=== PATIENT | female | born 1955 | race American Indian/Alaskan Native ===

== ENCOUNTER 2016-06-03 09:13 | Outpatient (CLI) | payer BC ==
--- NOTE | 2016-06-03 16:02 | Mammography Report ---
BILATERAL DIGITAL SCREENING MAMMOGRAM with CAD: 06/03/16 09:13:00 CLINICAL: Routine screening. COMPARISON:02/17/15 FINDINGS: There are scattered areas of fibroglandular density. No mass, architectural distortion or suspicious calcifications. IMPRESSION: No mammographic evidence of malignancy. BI-RADS CATEGORY: 1 - - Negative RECOMMENDATION: Routine mammographic screening in one year. COMMENT: Patient follow-up letters are generated by our [email or web address] application.
== END 2016-06-03 09:14 | disposition home or self-care (01) ==
LOC: SPVWC 09:13
PROVIDERS: ATTEND Obstetrics & Gynecology Gynecology
DX: Z12.31 Encounter for screening mammogram for malignant neoplasm of breast (principal)
CPT/HCPCS: 77067; G0202

== ENCOUNTER 2016-07-12 13:15 | Outpatient (CLI) | payer BC ==
--- NOTE | 2016-07-12 13:55 | XRay Report ---
ROUTINE CHEST, TWO VIEWS: HISTORY: Cough. The trachea, heart, mediastinal contour, lung cordero and bony thorax are unremarkable. IMPRESSION: Unremarkable chest x-ray.
== END 2016-07-12 13:16 | disposition home or self-care (01) ==
LOC: XRAY 13:15
PROVIDERS: ATTEND Internal Medicine
DX: R05 Cough (principal)
CPT/HCPCS: 71020

== ENCOUNTER 2016-10-10 10:13 | Outpatient (CLI) | payer BC ==
[2016-10-10 10:34] LABS: Basophils % (Auto) 0.8 % (0.0-1.8); Eosinophils % (Auto) 4.7 % (0.0-4.3); Hematocrit 38.3 % (30.3-42.9); Hemoglobin 12.1 gm/dl (10.1-14.3); Mean Corpuscular HGB Conc 32 % (30-34); Mean Corpuscular Hemoglobin 30 pg (28-32); Mean Corpuscular Volume 93 fl (79-97); Platelet Count 223 K/mm3 (140-440); Red Cell Distribution Width 15.4 % (13.2-15.2); White Blood Count 4.4 K/mm3 (4.5-11.0)
[2016-10-10 11:01] LABS: Alanine Aminotransferase 14 units/L (7-56); Albumin 3.9 g/dL (3.9-5); Alkaline Phosphatase 83 units/L (35-129); Anion Gap 17 mmol/L; Blood Urea Nitrogen 16 mg/dL (7-17); Carbon Dioxide 26 mmol/L (22-30); Chloride 101.8 mmol/L (98-107); Glucose 91 mg/dL (65-100); Potassium 4.2 mmol/L (3.6-5.0); Sodium 141 mmol/L (137-145); Total Protein 7.7 g/dL (6.3-8.2); Uric Acid 5.7 mg/dL (3.5-7.6)
[2016-10-13 15:27] LABS: Vitamin D, 25-OH, Total 20 ng/mL (30-100)
== END 2016-10-10 10:14 | disposition home or self-care (01) ==
LOC: LAB 10:13
PROVIDERS: ATTEND Internal Medicine
DX: M05.79 Rheumatoid arthritis with rheumatoid factor of multiple sites without organ or systems involvement (principal); E55.9 Vitamin D deficiency, unspecified; E04.9 Nontoxic goiter, unspecified; M10.9 Gout, unspecified; I10 Essential (primary) hypertension; J45.909 Unspecified asthma, uncomplicated; F32.9 Major depressive disorder, single episode, unspecified; F41.9 Anxiety disorder, unspecified; Z87.891 Personal history of nicotine dependence
CPT/HCPCS: 36415; 80053; 82306; 84436; 84443; 84550; 85025

== ENCOUNTER 2016-10-25 07:32 | Outpatient (CLI) | payer BC ==
[2016-10-25] MEDS ORDERED: PROVENTIL IH ONE (07:51)
--- NOTE | 2016-10-26 23:28 | Pulmonary Function Test ---
REFERRING PHYSICIAN: Dr. Aldana. Spirometry revealed FVC, FEV1 and FEV1/FVC flow volume loop were normal, indicating normal spirometry. No change was noted after the bronchodilator. Pulmonary exercise testing was performed after the patient exercised for 8 minutes and it was done as per ATS guidelines. There was no evidence of bronchoconstriction on significant decrease in FEV1 were noted with exercise. IMPRESSION: Normal spirometry. No evidence of exercise-induced bronchoconstriction. JOB# [id number] VT/NTS
== END 2016-10-25 07:33 | disposition home or self-care (01) ==
LOC: PF 07:32
PROVIDERS: ATTEND Internal Medicine
DX: J45.21 Mild intermittent asthma with (acute) exacerbation (principal); I10 Essential (primary) hypertension; Z87.891 Personal history of nicotine dependence
CPT/HCPCS: 94060; 94640

== ENCOUNTER 2017-01-12 11:00 | Outpatient (CLI) | payer BC | END 2017-01-12 11:01 | disposition home or self-care (01) | LOC: SLR 11:00 | PROVIDERS: ATTEND Internal Medicine Critical Care Medicine | DX: G47.33 Obstructive sleep apnea (adult) (pediatric) (principal); E66.9 Obesity, unspecified; R40.0 Somnolence; I10 Essential (primary) hypertension | CPT/HCPCS: 95811 ==

== ENCOUNTER 2017-03-18 09:53 | Emergency (ER) | payer BC ==
[2017-03-18] MEDS ORDERED: DUONEB *Not for PRN Use IH ONE (10:54)
--- NOTE | 2017-03-18 11:37 | Emergency Department Report ---
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) - Related Data Home Medications Medication Instructions Recorded Confirmed Last Taken Allopurinol [Zyloprim] 300 mg PO BID 03/05/13 04/27/15 05/04/15 Citalopram Hydrobromide 40 mg PO DAILY 03/05/13 05/05/15 05/05/15 06:30 [Citalopram HBr] Cyanocobalamin/Folic Acid [Vitamin 1 tab PO DAILY 03/05/13 05/05/15 1 Week Ago M48-Pbumj Acid Tablet] ~04/28/15 Estradiol [Estradiol] 1 patch TRANSDERMA Q2W 03/05/13 04/27/15 05/04/15 Hydroxyzine HCl [Hydroxyzine HCl] 50 mg PO DAILY 03/05/13 04/27/15 05/04/15 Methotrexate Sodium [Methotrexate] 6 tab PO 1XW 03/05/13 05/05/15 05/03/15 traMADol [Ultram 50 MG tab] 50 mg PO PRN PRN 03/05/13 04/27/15 05/04/15 Albuterol Sulfate [Albuterol 0.63%] 0.63 mg IH PRN PRN 09/23/14 04/27/15 Bupropion HCl [buPROPion] 150 mg PO DAILY 04/27/15 04/27/15 05/04/15 Cholecalciferol Vit D3 [Vitamin D3] 1,000 mg PO DAILY 04/27/15 04/27/15 1 Week Ago ~04/28/15 Clotrimazole [Jock Itch] 1 applic VG PRN PRN 04/27/15 04/27/15 Unknown Esomeprazole Magnesium [NexIUM] 40 mg PO QDAY 04/27/15 04/27/15 05/04/15 Ranitidine HCl [Zantac 300 MG TAB] 300 mg PO DAILY 04/27/15 04/27/15 05/04/15 Vitamin B12 1,000 mg PO DAILY 04/27/15 04/27/15 1 Week Ago ~04/28/15 amLODIPine [Norvasc] 5 mg PO DAILY 04/27/15 05/05/15 05/05/15 06:30 Previous Rx's Medication Instructions Recorded Last Taken Type Cephalexin [Keflex] 500 mg PO Q12HR #20 cap 03/18/17 Unknown Rx Allergies Allergy/AdvReac Type Severity Reaction Status Date / Time ampicillin Allergy Itching Verified 04/27/15 15:55 chocolate flavor Allergy Shortness Verified 04/27/15 15:55 of Breath latex Allergy Rash Verified 09/23/14 16:11 peanut Allergy Shortness Verified 04/27/15 15:55 of Breath shellfish derived Allergy Shortness Verified 04/27/15 15:55 of Breath caramel Allergy Shortness Uncoded 04/27/15 15:59 of Breath ED Review of Systems ROS: Stated complaint: SORE THROAT/CHILLS Other details as noted in HPI Comment: All other systems reviewed and negative Constitutional: no symptoms reported Eyes: as per HPI ENT: throat pain Respiratory: cough Endocrine: no symptoms reported Genitourinary: as per HPI Musculoskeletal: as per HPI Skin: as per HPI Neurological: as per HPI Psychiatric: as per HPI Hematological/Lymphatic: as per HPI ED Past Medical Hx - Past Medical History Previous Medical History?: Yes Hx Hypertension: Yes Hx Congestive Heart Failure: No Hx Diabetes: No Hx GERD: Yes Hx Arthritis: Yes Hx Asthma: Yes Hx COPD: No Additional medical history: GOUT - Surgical History Past Surgical History?: Yes Additional Surgical History: HYSTERECTOMY, BUNION SURGERY,CARPAL TUNNEL - Social History Smoking Status: Never Smoker Substance Use Type: Alcohol, Prescribed - Medications Home Medications: Home Medications Medication Instructions Recorded Confirmed Last Taken Type Allopurinol [Zyloprim] 300 mg PO BID 03/05/13 04/27/15 05/04/15 History Citalopram Hydrobromide 40 mg PO DAILY 03/05/13 05/05/15 05/05/15 06:30 History [Citalopram HBr] Cyanocobalamin/Folic Acid [Vitamin 1 tab PO DAILY 03/05/13 05/05/15 1 Week Ago History C36-Gsbxi Acid Tablet] ~04/28/15 Estradiol [Estradiol] 1 patch TRANSDERMA Q2W 03/05/13 04/27/1516 History Hydroxyzine HCl [Hydroxyzine HCl] 50 mg PO DAILY 03/05/13 04/27/15 05/04/15 History Methotrexate Sodium [Methotrexate] 6 tab PO 1XW 03/05/13 05/05/15 05/03/15 History traMADol [Ultram 50 MG tab] 50 mg PO PRN PRN 03/05/13 04/27/15 05/04/15 History Albuterol Sulfate [Albuterol 0.63%] 0.63 mg IH PRN PRN 09/23/14 04/27/15 History Bupropion HCl [buPROPion] 150 mg PO DAILY 04/27/15 04/27/15 05/04/15 History Cholecalciferol Vit D3 [Vitamin D3] 1,000 mg PO DAILY 04/27/15 04/27/15 1 Week Ago History ~04/28/15 Clotrimazole [Jock Itch] 1 applic VG PRN PRN 04/27/15 04/27/15 Unknown History Esomeprazole Magnesium [NexIUM] 40 mg PO QDAY 04/27/15 04/27/15 05/04/15 History Ranitidine HCl [Zantac 300 MG TAB] 300 mg PO DAILY 04/27/15 04/27/15 05/04/15 History Vitamin B12 1,000 mg PO DAILY 04/27/15 04/27/15 1 Week Ago History ~04/28/15 amLODIPine [Norvasc] 5 mg PO DAILY 04/27/15 05/05/15 05/05/15 06:30 History Cephalexin [Keflex] 500 mg PO Q12HR #20 cap 03/18/17 Unknown Rx ED Physical Exam - General Limitations: No Limitations General appearance: alert - Head Head exam: Present: atraumatic - Eye Eye exam: Present: normal appearance, PERRL, EOMI - ENT ENT exam: Present: mucous membranes moist, TM's normal bilaterally, other (red wo exudate). Absent: normal orophraynx - Neck Neck exam: Present: normal inspection - Respiratory Respiratory exam: Present: normal lung sounds bilaterally, wheezes (mild b) - Cardiovascular Cardiovascular Exam: Present: regular rate - GI/Abdominal GI/Abdominal exam: Present: soft - Rectal Rectal exam: Present: deferred - Extremities Exam Extremities exam: Present: normal inspection, full ROM - Back Exam Back exam: Present: normal inspection, full ROM. Absent: tenderness, CVA tenderness (R) - Neurological Exam Neurological exam: Present: alert, oriented X3, CN II-XII intact - Psychiatric Psychiatric exam: Present: normal affect, normal mood - Skin Skin exam: Present: warm, dry, intact ED Course Vital Signs 03/18/17 03/18/17 03/18/17 09:58 11:44 13:06 Temperature 99.2 F 100.2 F H Pulse Rate 102 H 104 H Pulse Rate [ 84 Right Middle Lobe] Respiratory 18 20 Rate Respiratory 18 Rate [Right Middle Lobe] Blood Pressure 137/83 Blood Pressure 119/72 [Right] O2 Sat by Pulse 97 98 Oximetry - Reevaluation(s) Reevaluation #1: to er w s/s urti hosp employee medicated for fever which went down ptd- 100 oral on dc strep pos medicated for asthma ae w relief non toxic appearing no cp no sob dc home w dc poc 03/26/17 12:47 Reevaluation #2: 03/18/17 13:11 pt updated w results of labs medicated then will dc home w dc poc ED Medical Decision Making - Radiology Data Radiology results: report reviewed, image reviewed - Medical Decision Making see note strep pos - Differential Diagnosis asthma ae/ urti/ pharngitis Critical care attestation.: If time is entered above; I have spent that time in minutes in the direct care of this critically ill patient, excluding procedure time. ED Disposition Clinical Impression: Asthma, URTI (acute upper respiratory infection), Strep pharyngitis Disposition: DC- TO HOME OR SELFCARE Is pt being admited?: No Does the pt Need Aspirin: No Condition: Stable Instructions: Asthma (ED), Strep Throat (ED) Additional Instructions: rest fluids hydrate well follow up with pcp monday if not feeling better continue home meds good handwashing Prescriptions: Cephalexin [Keflex] 500 mg PO Q12HR #20 cap Referrals: PAUL RAMOS JR, MD [Primary Care Provider] - 3-5 Days Forms: Work/School Release Form(ED) Time of Disposition: 12:44
--- NOTE | 2017-03-18 11:54 | XRay Report ---
Chest 2 views: Compared to 07/12/16. History: Ccc Findings: Normal cardiomediastinal silhouette. Trachea is midline. No consolidation, pneumothorax or pleural effusion. Impression: No acute cardiopulmonary findings.
[2017-03-18] MEDS ORDERED: KEFLEX PO ONE (12:45)
[2017-03-18 13:08] VITALS: BP 119/72
[2017-03-18] MEDS ORDERED: MOTRIN PO ONE (13:12)
== END 2017-03-18 13:10 | disposition home or self-care (01) ==
LOC: ED 09:53
DX: J02.0 Streptococcal pharyngitis (principal); J45.909 Unspecified asthma, uncomplicated; J06.9 Acute upper respiratory infection, unspecified; I10 Essential (primary) hypertension; K21.9 Gastro-esophageal reflux disease without esophagitis; M19.90 Unspecified osteoarthritis, unspecified site; Z88.1 Allergy status to other antibiotic agents; Z91.040 Latex allergy status; Z91.010 Allergy to peanuts; Z91.013 Allergy to seafood; Z91.018 Allergy to other foods
CPT/HCPCS: 71020; 87400; 87430; 96372; 99283; J2930

== ENCOUNTER → 2017-06-13 | Outpatient (CLI) | payer BC | LOC: SLR 11:00 | PROVIDERS: ATTEND Internal Medicine Critical Care Medicine | DX: G47.30 Sleep apnea, unspecified (principal); I10 Essential (primary) hypertension; J45.909 Unspecified asthma, uncomplicated; Z79.899 Other long term (current) drug therapy | CPT/HCPCS: 95810 ==

== ENCOUNTER → 2017-08-09 | Outpatient (CLI) | payer BC | LOC: SLR 11:00 | PROVIDERS: ATTEND Internal Medicine Critical Care Medicine | DX: G47.33 Obstructive sleep apnea (adult) (pediatric) (principal); I10 Essential (primary) hypertension; J45.909 Unspecified asthma, uncomplicated; K21.9 Gastro-esophageal reflux disease without esophagitis; Z87.891 Personal history of nicotine dependence | CPT/HCPCS: 95811 ==

== ENCOUNTER 2018-09-20 15:22 | Outpatient (CLI) | payer BC ==
--- NOTE | 2018-09-20 16:09 | Mammography Report ---
BILATERAL DIGITAL SCREENING MAMMOGRAM with CAD: 09/20/18 15:22:00 CLINICAL: Routine screening. COMPARISON: 06/03/16 FINDINGS: There are bilateral scattered areas of fibroglandular density.No mass, architectural distortion or suspicious calcifications. IMPRESSION: No mammographic evidence of malignancy. BI-RADS CATEGORY: 1 -- Negative RECOMMENDATION: Routine mammographic screening in one year. COMMENT: Patient follow-up letters are generated by our [employer] application.
== END 2018-09-20 15:23 | disposition home or self-care (01) ==
LOC: SPVWC 15:22
PROVIDERS: ATTEND Obstetrics & Gynecology
DX: Z12.31 Encounter for screening mammogram for malignant neoplasm of breast (principal); I10 Essential (primary) hypertension; J45.909 Unspecified asthma, uncomplicated; K21.9 Gastro-esophageal reflux disease without esophagitis; Z90.710 Acquired absence of both cervix and uterus
CPT/HCPCS: 77067

== ENCOUNTER 2018-10-29 07:38 | Emergency (ER) | payer BC ==
[2018-10-29 07:48] VITALS: BP 172/89
[2018-10-29 08:10] LABS: Bilirubin,Urine NEG (Negative); Blood,Urine SM (Negative); Color,Urine Yellow (Yellow); Mucus,Urine FEW /HPF; Protein,Urine <15 mg/dL mg/dL (Negative); Urobilinogen,Urine < 2.0 mg/dL (<2.0)
[2018-10-29] MEDS ORDERED: ULTRAM PO ONE (08:28)
--- NOTE | 2018-10-29 08:28 | Emergency Department Report ---
HPI - General Chief Complaint: Abdominal Pain Time Seen by Provider: 10/29/18 07:53 - HPI HPI: Patient is a 63-year-old female who comes to the ER complaining of back pain that originates in her mid back radiating to her right side. This is associated with frequency through the night. She does also have increasing pain with movement. Patient denies any fall or injury. However, she does do a lot of lifting pushing and pulling with her job. She denies dysuria or fever. She denies abdominal pain. There is been no nausea vomiting or diarrhea. She had a normal BM yesterday. Patient is ambulatory on admission to the emergency room. PCP is Dr. Aldana. home rx: methatrexate allopurinol zantac vistaril estradial benazepril citalopram buproprion flonase clotrimez/betameth cream vit D Vit B fish oil ED Past Medical Hx - Past Medical History Previous Medical History?: Yes Hx Hypertension: Yes Hx Congestive Heart Failure: No Hx Diabetes: No Hx GERD: Yes Hx Arthritis: Yes Hx Asthma: Yes Hx COPD: No Additional medical history: GOUT. sleep apnea - Surgical History Past Surgical History?: Yes Additional Surgical History: HYSTERECTOMY, BUNION SURGERY,CARPAL TUNNEL, left knee replacement - Family History Family history: no significant - Social History Smoking Status: Never Smoker Substance Use Type: Alcohol - Medications Home Medications: Home Medications Medication Instructions Recorded Confirmed Last Taken Type Allopurinol [Zyloprim] 300 mg PO BID 03/05/13 04/27/15 05/04/15 History Citalopram Hydrobromide 40 mg PO DAILY 03/05/13 05/05/15 05/05/15 06:30 History [Citalopram HBr] Cyanocobalamin/Folic Acid [Vitamin 1 tab PO DAILY 03/05/13 05/05/15 1 Week Ago History C83-Qnlav Acid Tablet] ~04/28/15 Estradiol 1 patch TRANSDERMA Q2W 03/05/13 04/27/15 05/04/15 History Methotrexate Sodium [Methotrexate] 6 tab PO 1XW 03/05/13 05/05/15 05/03/15 History Cholecalciferol Vit D3 [Vitamin D3] 1,000 mg PO DAILY 04/27/15 04/27/15 1 Week Ago History ~04/28/15 Clotrimazole [Jock Itch] 1 applic VG PRN PRN 04/27/15 04/27/15 Unknown History Esomeprazole Magnesium [NexIUM] 40 mg PO QDAY 04/27/15 04/27/15 05/04/15 History Vitamin B12 1,000 mg PO DAILY 04/27/15 04/27/15 1 Week Ago History ~04/28/15 buPROPion HCl [buPROPion] 150 mg PO DAILY 04/27/15 04/27/15 05/04/15 History raNITIdine HCl [Zantac 300 MG TAB] 300 mg PO DAILY 04/27/15 04/27/15 05/04/15 History Sulfamethoxazole/Trimethoprim 1 each PO BID #6 tablet 10/29/18 Unknown Rx [Bactrim DS TAB] traMADol [Ultram] 50 mg PO Q6HR PRN #10 tablet 10/29/18 Unknown Rx ED Review of Systems ROS: Stated complaint: RT KNEE/RT SHOULDER PAIN Other details as noted in HPI Comment: All other systems reviewed and negative Physical Exam - Physical Exam Vital Signs: Vital Signs 10/29/18 07:41 Temperature 98.0 F Pulse Rate 73 Respiratory 18 Rate Blood Pressure 172/89 O2 Sat by Pulse 100 Oximetry Physical Exam: Alert and oriented 4. No focal deficit. Ambulatory. S1-S2. Lungs clear to auscultation. Abdomen soft and nontender. No midline spine tenderness. Tenderness to bilateral flanks but not consistent with CVA tenderness. Her pain seems to be with any sort of movement. She has no edema no JVD. No abrasions lacerations or other signs of injury. Vital signs are stable and she is afebrile on admission to the [facility]. ED Course Vital Signs 10/29/18 07:41 Temperature 98.0 F Pulse Rate 73 Respiratory 18 Rate Blood Pressure 172/89 O2 Sat by Pulse 100 Oximetry ED Medical Decision Making - Medical Decision Making Lab Results 10/29/18 Range/Units Unknown Urine Bilirubin Neg (Negative) Urine RBC (Auto) 3.0 (0.0-6.0) /HPF U Epithel Cells (Auto) 3.0 (0-13.0) /HPF Vital Signs 10/29/18 07:41 Temperature 98.0 F Pulse Rate 73 Respiratory 18 Rate Blood Pressure 172/89 O2 Sat by Pulse 100 Oximetry Labs 10/29/18 Unknown Urine Bilirubin Neg Urine RBC (Auto) 3.0 U Epithel Cells (Auto) 3.0 Lab Results 10/29/18 Range/Units Unknown Urine Color Yellow (Yellow) Urine Turbidity Clear (Clear) Urine pH 5.0 (5.0-7.0) Ur Specific [place] 1.017 (1.003-1.030) Urine Protein <15 mg/dl (Negative) mg/dL Urine Glucose (UA) Neg (Negative) mg/dL Urine Ketones Neg (Negative) mg/dL Urine Blood Sm (Negative) Urine Nitrite Neg (Negative) Urine Bilirubin Neg (Negative) Urine Urobilinogen < 2.0 (<2.0) mg/dL Ur Leukocyte Esterase Tr (Negative) Urine WBC (Auto) 2.0 (0.0-6.0) /HPF Urine RBC (Auto) 3.0 (0.0-6.0) /HPF U Epithel Cells (Auto) 3.0 (0-13.0) /HPF Urine Mucus Few /HPF Tr leuks and small blood in urine. culture requested will treat for UTI and musculoskeletal pain pt understands dc plan of care dc home with dc plan of care and follow up. dc on bactrim. - Differential Diagnosis uti v musculoskeletal pain Critical care attestation.: If time is entered above; I have spent that time in minutes in the direct care of this critically ill patient, excluding procedure time. ED Disposition Clinical Impression: Back pain, Osteoarthritis, Urinary frequency Disposition: DC-01 TO HOME OR SELFCARE Is pt being admited?: No Does the pt Need Aspirin: No Condition: Stable Instructions: Low Back Strain (ED) Additional Instructions: diet as tolerated activity as tolerated meds as ordered follow up with pcp in 48h if persists hydrate well with water today Prescriptions: Sulfamethoxazole/Trimethoprim [Bactrim DS TAB] 1 each PO BID #6 tablet traMADol [Ultram] 50 mg PO Q6HR PRN #10 tablet PRN Reason: Pain Referrals: PRIMARY CARE, [Primary Care Provider] - 3-5 Days BENJA CRUZ MD [Staff Physician] - 3-5 Days Forms: Work/School Release Form(ED) Time of Disposition: 08:27
== END 2018-10-29 09:16 | disposition home or self-care (01) ==
LOC: ED 07:38
DX: M54.6 Pain in thoracic spine (principal); M19.90 Unspecified osteoarthritis, unspecified site; R35.0 Frequency of micturition; I10 Essential (primary) hypertension; K21.9 Gastro-esophageal reflux disease without esophagitis; J45.909 Unspecified asthma, uncomplicated; G47.30 Sleep apnea, unspecified; Z79.899 Other long term (current) drug therapy; Z88.1 Allergy status to other antibiotic agents; Z91.040 Latex allergy status; Z91.013 Allergy to seafood
CPT/HCPCS: 81001; 87086

== ENCOUNTER 2018-10-31 08:12 | Emergency (ER) | payer BC ==
[2018-10-31] MEDS ORDERED: TORADOL IV ONE (09:15)
[2018-10-31] MEDS ORDERED: NACL 0.9% 1000 ML 1,000 ML IV ONE (09:15)
[2018-10-31 09:39] LABS: Basophils # (Auto) 0.1 K/mm3 (0.0-0.1); Eosinophils # (Auto) 0.2 K/mm3 (0.0-0.4); Hematocrit 35.9 % (30.3-42.9); Hemoglobin 11.8 gm/dl (10.1-14.3); Lymphocytes # (Auto) 1.2 K/mm3 (1.2-5.4); Lymphocytes % (Auto) 20.2 % (13.4-35.0); Mean Corpuscular HGB Conc 33 % (30-34); Mean Corpuscular Volume 94 fl (79-97); Monocytes # (Auto) 0.4 K/mm3 (0.0-0.8); Monocytes % (Auto) 6.7 % (0.0-7.3); Platelet Count 213 K/mm3 (140-440); Red Blood Count 3.83 M/mm3 (3.65-5.03); Red Cell Distribution Width 16.3 % (13.2-15.2)
[2018-10-31] MEDS ORDERED: PYRIDIUM PO ONE (10:00)
[2018-10-31 10:37] LABS: Calcium 9.1 mg/dL (8.4-10.2)
[2018-10-31 10:38] LABS: Albumin 3.8 g/dL (3.9-5)
--- NOTE | 2018-10-31 10:41 | Cat Scan Report ---
CT ABDOMEN AND PELVIS WITHOUT CONTRAST HISTORY: Left abdominal pain with frequent urination COMPARISON: None. TECHNIQUE: Axial CT images were obtained through the abdomen and pelvis without IV contrast. Sagittal and coronal reformatted images. All CT scans at this location are performed using CT dose reduction for ALARA by means of automated exposure control. FINDINGS: CT ABDOMEN: Lung Bases: Clear. Liver: No significant abnormality. Biliary: No significant abnormality. Spleen: No significant abnormality. Unenlarged. Pancreas: No significant abnormality. Adrenals: No significant abnormality. Kidneys: No significant abnormality. Lymphatics: No lymphadenopathy. Vasculature: No significant abnormality. Bowel/Peritoneum: No significant abnormality. No free air. No free fluid. The appendix is not confide ntly identified, correlate with surgical history. CT PELVIS: : The uterus has been surgically removed or is small in size. No adnexal abnormality. The bladder i s unremarkable. Osseous Structures: Moderate degenerative changes in the lower lumbar spine. Grade 1 anterior listhes is of L4 with respect to L5 is identified which appears degenerative in nature. Additional Findings: Small umbilical hernia containing fat. IMPRESSION: No acute abdominal process is identified. Surgical changes as described. Degenerative changes in the lumbar spine. Small umbilical hernia containing fat. Signer Name: Cody Allen Jr, MD Signed: 10/31/2018 10:37 AM Workstation Name: [id number]
[2018-10-31 12:05] LABS: Bilirubin,Urine NEG (Negative); Blood,Urine NEG (Negative); Color,Urine Amber (Yellow); Mucus,Urine FEW /HPF; Protein,Urine <15 mg/dL mg/dL (Negative)
--- NOTE | 2018-10-31 12:13 | Emergency Department Report ---
ED Fever HPI - General Chief Complaint: Abdominal Pain Stated Complaint: (L) SIDE PAIN Time Seen by Provider: 10/31/18 09:15 - History of Present Illness Initial Comments: Patient reports left lower back and left flank pain. Reports hx of recent UTI and compliant with antibiotics. Reports hx of chronic back pain. Reports back pain was worst today. Timing/Duration: yesterday Fever Severity/Quality: no fever Associated Symptoms: denies symptoms ED Review of Systems ROS: Stated complaint: (L) SIDE PAIN Other details as noted in HPI Other: GENERAL: No weight change, fatigue, weakness, fever, chills, or night sweats SKIN: No changes in skin or hair, no itching, no rashes, no jaundice HEAD: No trauma, headache, or visual changes EYES: No blurriness, tearing, itching, acute visual loss, conjunctival discoloration, or scleral icterus EARS: No hearing loss, tinnitus, vertigo, or earache NOSE: No rhinorrhea, stuffiness, sneezing, itching, or epistaxis MOUTH: No bleeding gums, hoarseness, sore throat, or swelling CARDIAC: No new murmur, chest pain, palpitations, dyspnea on exertion, orthopnea, PND, or edema RESPIRATORY: No shortness of breath, wheeze, cough, sputum production, hemoptysis, pneumonia, asthma, bronchitis, or emphysema GI: No change in appetite, nausea, vomiting, dysphagia, change in bowel frequency, diarrhea, constipation, bleeding, hematemesis, melena, hematochezia, or abdominal pain URINARY: No frequency, urgency, polyuria, dysuria, hematuria, or incontinence MUSCULOSKELETAL: Low back and low left back pain today worsened. No muscle w eakness, joint stiffness, redness, swelling NEUROLOGIC: No loss of sensation, numbness, tingling, tremors, weakness, paralysis, seizures HEMATOLOGIC: No anemia, easy bruising, bleeding, petechiae, or purpura ENDOCRINE: No hot or cold intolerance, sweating, polyuria, polydipsia or, polyphagia no thyroid problems PSYCHIATRIC: No change in mood, no anxiety, no depression ED Past Medical Hx - Past Medical History Previous Medical History?: Yes Hx Hypertension: Yes Hx Congestive Heart Failure: No Hx Diabetes: No Hx GERD: Yes Hx Arthritis: Yes Hx Asthma: Yes Hx COPD: No Additional medical history: GOUT. sleep apnea - Surgical History Past Surgical History?: Yes Additional Surgical History: HYSTERECTOMY, BUNION SURGERY,CARPAL TUNNEL, left knee replacement - Social History Smoking Status: Never Smoker Substance Use Type: Alcohol - Medications Home Medications: Home Medications Medication Instructions Recorded Confirmed Last Taken Type Allopurinol [Zyloprim] 300 mg PO BID 03/05/13 04/27/15 05/04/15 History Citalopram Hydrobromide 40 mg PO DAILY 03/05/13 05/05/15 05/05/15 06:30 History [Citalopram HBr] Cyanocobalamin/Folic Acid [Vitamin 1 tab PO DAILY 03/05/13 05/05/15 1 Week Ago History U08-Xlsix Acid Tablet] ~04/28/15 Estradiol 1 patch TRANSDERMA Q2W 03/05/13 04/27/15 05/04/15 History Methotrexate Sodium [Methotrexate] 6 tab PO 1XW 03/05/13 05/05/15 05/03/15 History Cholecalciferol Vit D3 [Vitamin D3] 1,000 mg PO DAILY 04/27/15 04/27/15 1 Week Ago History ~04/28/15 Clotrimazole [Jock Itch] 1 applic VG PRN PRN 04/27/15 04/27/15 Unknown History Esomeprazole Magnesium [NexIUM] 40 mg PO QDAY 04/27/15 04/27/15 05/04/15 History Vitamin B12 1,000 mg PO DAILY 04/27/15 04/27/15 1 Week Ago History ~04/28/15 buPROPion HCl [buPROPion] 150 mg PO DAILY 04/27/15 04/27/15 05/04/15 History raNITIdine HCl [Zantac 300 MG TAB] 300 mg PO DAILY 04/27/15 04/27/15 05/04/15 History Sulfamethoxazole/Trimethoprim 1 each PO BID #6 tablet 10/29/18 Unknown Rx [Bactrim DS TAB] traMADol [Ultram] 50 mg PO Q6HR PRN #10 tablet 10/29/18 Unknown Rx Lidocaine [Aspercreme] 1 each TP Q6H PRN #10 adh..patch 10/31/18 Unknown Rx ED Physical Exam - Other Other exam information: GENERAL: Patient in no acute distress HEAD: Normocephalic, atraumatic EYES: PERRLA, EOM intact, no scleral icterus, no papilledema, no conjunctival hemorrhage, visual cordero and acuity wnl NOSE: No tenderness, discharge, sinus tenderness MOUTH: No erythema, bleeding, exudate HEART: Regular rate and rhythm, no murmur, S1-S2 are auscultated, pulses are symmetric LUNGS: No rales, rhonchi, wheezing ABDOMEN: Normal bowel sounds, no tenderness, no rebound, no guarding, no masses, no CVA tenderness MUSCULOSKELETAL: Right radial wrist pain with ulnar abduction wrist while holding thumb inside hand. no redness, no swelling NEUROLOGIC: GCS 15, Alert and Oriented x3, Cranial nerves intact, normal sensation, normal strength, no cerebellar deficit SKIN: Skin is warm and dry, no wounds, no rashes ED Course Vital Signs 10/31/18 10/31/18 08:18 12:36 Temperature 97.7 F Pulse Rate 85 74 Respiratory 18 16 Rate Blood Pressure 104/65 Blood Pressure 100/70 [Right] O2 Sat by Pulse 98 98 Oximetry ED Medical Decision Making - Lab Data Result diagrams: 10/31/18 09:21 10/31/18 09:21 Laboratory Results - last 24 hr 10/31/18 10/31/18 10/31/18 09:21 09:21 11:49 WBC 6.2 RBC 3.83 Hgb 11.8 Hct 35.9 MCV 94 MCH 31 MCHC 33 RDW 16.3 H Plt Count 213 Lymph % (Auto) 20.2 [place] % (Auto) 6.7 Eos % (Auto) 4.0 Baso % (Auto) 2.0 H Lymph # 1.2 [place] # 0.4 Eos # 0.2 Baso # 0.1 Seg Neutrophils % 67.1 Seg Neutrophils # 4.2 Sodium 138 Potassium 4.6 Chloride 100.5 Carbon Dioxide 26 Anion Gap 16 BUN 13 Creatinine 1.3 H Estimated GFR 50 BUN/Creatinine Ratio 10 Glucose 99 Calcium 9.1 Total Bilirubin 0.40 AST 17 ALT 9 Alkaline Phosphatase 96 Total Creatine Kinase 65 Total Protein 8.3 H Albumin 3.8 L Albumin/Globulin Ratio 0.8 Urine Color [place] Urine Turbidity Clear Urine pH 6.0 Ur Specific [place] 1.016 Urine Protein <15 mg/dl Urine Glucose (UA) Neg Urine Ketones Neg Urine Blood Neg Urine Nitrite Neg Urine Bilirubin Neg Urine Urobilinogen 4.0 Ur Leukocyte Esterase Neg Urine WBC (Auto) 1.0 Urine RBC (Auto) 1.0 U Epithel Cells (Auto) 2.0 Urine Mucus Few - Radiology Data Radiology results: report reviewed - Medical Decision Making Patient comfortable. Updated with results. Plan discharge with outpatient follow up. Return if any worsening. Critical care attestation.: If time is entered above; I have spent that time in minutes in the direct care of this critically ill patient, excluding procedure time. ED Disposition Clinical Impression: Back pain at L4-L5 level Disposition: - TO HOME OR SELFCARE Is pt being admited?: No Condition: Stable Instructions: Back Pain (ED) Prescriptions: Lidocaine [Aspercreme] 1 each TP Q6H PRN #10 adh..patch PRN Reason: Pain, Mild (1-3) Referrals: PRIMARY CARE, [Primary Care Provider] - 2-3 Days [facility] [Outside] - as needed Forms: Work/School Release Form(ED) Time of Disposition: 12:17
[2018-10-31 12:37] VITALS: BP 100/70
== END 2018-10-31 12:36 | disposition home or self-care (01) ==
LOC: ED 08:12
DX: M54.5 Low back pain (principal); I10 Essential (primary) hypertension; K21.9 Gastro-esophageal reflux disease without esophagitis; M19.90 Unspecified osteoarthritis, unspecified site; J45.909 Unspecified asthma, uncomplicated; M10.9 Gout, unspecified; G47.30 Sleep apnea, unspecified; Z90.710 Acquired absence of both cervix and uterus; Z96.652 Presence of left artificial knee joint; Z79.899 Other long term (current) drug therapy; Z88.1 Allergy status to other antibiotic agents; Z91.040 Latex allergy status; Z91.018 Allergy to other foods; Z91.013 Allergy to seafood; Z88.8 Allergy status to other drugs, medicaments and biological substances
CPT/HCPCS: 36415; 74176; 80053; 81001; 82550; 85025; 96374; 99284; J1885; J7030

== ENCOUNTER 2019-04-17 07:27 | Outpatient (CLI) | payer BC ==
--- NOTE | 2019-04-17 08:11 | XRay Report ---
CHEST 2 VIEWS INDICATION: COUGH. COMPARISON: 03/18/2017 FINDINGS: Support devices: None. Heart: Within normal limits. Lungs/Pleura: No acute air space or interstitial disease. No significant pleural effusion. IMPRESSION: No acute findings. Signer Name: Konrad Coffey MD Signed: 04/17/2019 8:06 AM Workstation Name: [id number]
== END 2019-04-17 07:28 | disposition home or self-care (01) ==
LOC: XRAY 07:27
PROVIDERS: ATTEND Internal Medicine
DX: R05 Cough (principal); M10.9 Gout, unspecified
CPT/HCPCS: 36415; 71046; 84550

== ENCOUNTER 2019-05-31 07:34 | Outpatient (CLI) | payer BC ==
[2019-05-31 10:19] LABS: Alanine Aminotransferase 11 units/L (7-56); BUN/Creatinine Ratio 19; Blood Urea Nitrogen 19 mg/dL (7-17); Calcium 9.3 mg/dL (8.4-10.2); Hemolysis Index 2; Uric Acid 3.6 mg/dL (3.5-7.6)
== END 2019-05-31 07:35 | disposition home or self-care (01) ==
LOC: LAB 07:34
PROVIDERS: ATTEND Internal Medicine
DX: I10 Essential (primary) hypertension (principal); M10.9 Gout, unspecified
CPT/HCPCS: 36415; 80053; 84550

== ENCOUNTER 2020-04-30 15:25 | Outpatient (CLI) | payer BC ==
[2020-04-30 17:17] LABS: Basophils % (Auto) 0.6 % (0.0-1.8); Eosinophils # (Auto) 0.2 K/mm3 (0.0-0.4); Eosinophils % (Auto) 2.5 % (0.0-4.3); Hematocrit 38.5 % (30.3-42.9); Hemoglobin 12.3 gm/dl (10.1-14.3); Lymphocytes # (Auto) 1.7 K/mm3 (1.2-5.4); Lymphocytes % (Auto) 27.5 % (13.4-35.0); Mean Corpuscular HGB Conc 32 % (30-34); Mean Corpuscular Volume 101 fl (79-97); Monocytes # (Auto) 0.4 K/mm3 (0.0-0.8); Monocytes % (Auto) 7.2 % (0.0-7.3); Platelet Count 260 K/mm3 (140-440); Red Blood Count 3.81 M/mm3 (3.65-5.03); Red Cell Distribution Width 16.5 % (13.2-15.2)
[2020-04-30 17:39] LABS: Alanine Aminotransferase 21 units/L (7-56); Albumin 4.1 g/dL (3.9-5); BUN/Creatinine Ratio 16; Blood Urea Nitrogen 18 mg/dL (7-17); Calcium 9.1 mg/dL (8.4-10.2); Chol/HDL Ratio 1.66 %; HDL Cholesterol 100 mg/dL (40-59); Hemolysis Index 6; LDL Cholesterol,Direct 73 mg/dL (50-130)
== END 2020-04-30 15:26 | disposition home or self-care (01) ==
LOC: LAB 15:25
PROVIDERS: ATTEND Internal Medicine
DX: Z00.00 Encounter for general adult medical examination without abnormal findings (principal)
CPT/HCPCS: 36415; 80053; 80061; 84443; 85025

== ENCOUNTER 2020-09-22 07:52 | Outpatient (CLI) | payer BC ==
--- NOTE | 2020-09-22 11:28 | Mammography Report ---
DIGITAL SCREENING MAMMOGRAM WITH CAD, 09/22/2020 INDICATION: Routine screening mammography. TECHNIQUE: Digital bilateral 2D mammography was obtained in the craniocaudal and mediolateral obliq ue projections. This examination was interpreted with the benefit of Computer-Aided Detection analysi s. COMPARISON: 09/20/2018. FINDINGS: Breast Density: The breasts are almost entirely fatty. There is no evidence of dominant mass, suspicious calcifications or architectural distortion in eithe r breast. IMPRESSION: Follow up recommendation: Routine yearly BI-RADS Category 1: Negative. A "normal" or negative report should not discourage follow up or biopsy of a clinically significant f inding. A written summary of these findings will be mailed to the patient. The patient will be entered into a mammography reporting system which will generate a reminder letter for the patient's next appointmen t at the appropriate interval. The [employer] recommends yearly mammograms starting at age 40 and continuing as l chao as a woman is in good health. Breast MRI is recommended for women with an approximate 20-25% or greater lifetime risk of breast cancer, including women with a strong family history of breast or ova geno cancer or who have been treated for Hodgkin's disease. Signer Name: Konrad Coffey MD Signed: 09/22/2020 11:19 AM Workstation Name: [id number]
== END 2020-09-22 07:53 | disposition home or self-care (01) ==
LOC: SPVWC 07:52
PROVIDERS: ATTEND Obstetrics & Gynecology
DX: Z12.31 Encounter for screening mammogram for malignant neoplasm of breast (principal)
CPT/HCPCS: 77067

== ENCOUNTER 2021-09-30 06:21 | Outpatient (CLI) | payer BC, MEDICARE ==
--- NOTE | 2021-10-01 10:01 | Mammography Report ---
DIGITAL SCREENING MAMMOGRAM WITH CAD, 09/30/2021 CLINICAL INFORMATION / INDICATION: Routine screening mammography. SCREENING MAMMOGRAM TECHNIQUE: Digital bilateral 2D mammography was obtained in the craniocaudal and mediolateral obliqu e projections. This examination was interpreted with the benefit of Computer-Aided Detection analysis . COMPARISON: 09/22/2020. FINDINGS: Breast Density: There are scattered areas of fibroglandular density. No dominant mass, suspicious calcifications, or architectural distortion in either breast. IMPRESSION: No mammographic evidence of malignancy. Follow up recommendation: Routine yearly screening mammogram. BI-RADS Category 1: NEGATIVE A "normal" or negative report should not discourage follow up or biopsy of a clinically significant f inding. A written summary of these findings will be mailed to the patient. The patient will be entered into a mammography reporting system which will generate a reminder letter for the patient's next appointmen t at the appropriate interval. The [employer] recommends yearly mammograms starting at age 40 and continuing as l chao as a woman is in good health. Breast MRI is recommended for women with an approximate 20-25% or greater lifetime risk of breast cancer, including women with a strong family history of breast or ova geno cancer or who have been treated for Hodgkin's disease. Signer Name: Konrad Coffey MD Signed: 10/01/2021 9:57 AM Workstation Name: [email or web address]
== END 2021-09-30 06:22 | disposition home or self-care (01) ==
LOC: MAMMO 06:21
PROVIDERS: ATTEND Obstetrics & Gynecology
DX: Z12.31 Encounter for screening mammogram for malignant neoplasm of breast (principal)
CPT/HCPCS: 77067